=== PATIENT | male | born 1990 | race African-American/Black ===

== ENCOUNTER 2016-11-05 08:36 | Emergency (ER) | payer SELFPAY ==
[~2016-11-05] VITALS: Ht 193 cm; Wt 108.9 kg
--- NOTE | 2016-11-05 08:44 | NUR ---
DR CURRY AT THE BEDSIDE FOR EVAL AND EXAM.
[2016-11-05] MEDS ORDERED: IV NORMAL SALINE 1000 ML BAG IV ONE (08:45)
[2016-11-05] MEDS ORDERED: PANTOPRAZOLE SODIUM 40 MG VIAL IV ONE (08:45)
[2016-11-05] MEDS ORDERED: HYDROMORPHONE 1 MG/1 ML DISP.SYRIN IV ONE ×2 (08:45→10:30)
[2016-11-05] MEDS ORDERED: ONDANSETRON 4 MG/2 ML VIAL IV ONE ×2 (08:45→10:30)
[2016-11-05] MEDS ORDERED: HYDROMORPHONE 2 MG/1 ML DISP.SYRIN ONE ×2 (08:59→10:41)
[2016-11-05] MEDS ORDERED: PANTOPRAZOLE SODIUM 40 MG VIAL ONE (08:59)
[2016-11-05] MEDS ORDERED: ONDANSETRON 4 MG/2 ML VIAL ONE ×3 (08:59→10:41)
[2016-11-05 09:10] LABS: BASOPHILS % (AUTO) 0.4 % (0.0-2.0); EOSINOPHILS # (AUTO) 0.2 K/uL (0.0-0.7); EOSINOPHILS % (AUTO) 1.9 % (0.0-7.0); HEMATOCRIT 46.8 % (40-50); HEMOGLOBIN 15.6 G/DL (14.0-18.0); LYMPHOCYTES # (AUTO) 1.9 K/UL (0.8-4.8); MEAN CORPUSCULAR HEMOGLOBIN 29.5 UUG (27.0-31.0); MEAN CORPUSCULAR HGB CONC 33 g/dL (32.0-37.0); MEAN CORPUSCULAR VOLUME 88.7 FL (82.0-92.0); MONOCYTES # (AUTO) 0.6 K/UL (0.1-1.30); MONOCYTES % (AUTO) 5.5 % (0.0-11.0); NEUTROPHILS # (AUTO) 8.2 K/UL (1.8-8.9); NEUTROPHILS % (AUTO) 75.2 % (38.5-71.5); PLATELET COUNT (AUTO) 274 K/UL (150-450); RED BLOOD CELL COUNT(AUTO) 5.28 MIL/UL (4.7-6.1); RED CELL DISTRIBUTION WIDTH 12.4 % (11.5-14.5); WHITE BLOOD COUNT (AUTO) 10.9 K/UL (4.0-11.2)
[2016-11-05] MEDS ORDERED: ONDANSETRON IV *ER 4 MG/2 ML VIAL IV ONE (09:45)
[2016-11-05 09:52] LABS: ALBUMIN 4.5 g/dL (3.4-5.0); BILIRUBIN,DIRECT 0.1 mg/dL (0.0-0.2); BILIRUBIN,TOTAL 0.6 mg/dL (0.2-1.0); CREATININE 1.1 mg/dL (0.6-1.3); POTASSIUM 3.6 mmol/L (3.5-5.1); TOTAL PROTEIN, SERUM 8.3 g/dL (6.4-8.2)
[2016-11-05 09:59] LABS: EOSINOPHILS % (MANUAL) 3 % (0-8); LYMPHOCYTES % (MANUAL) 22 % (20-40); MONOCYTES % (MANUAL) 3 % (2-10); NEUTROPHILS % (MANUAL) 72 % (42-75)
[2016-11-05 10:00] LABS: PLATELET ESTIMATE ADEQUATE
[2016-11-05 10:30] LABS: CALCIUM 9.6 mg/dL (8.5-10.1)
[2016-11-05] MEDS ORDERED: DICYCLOMINE HCL 10 MG/5 ML UDC LIQ PO ONE (10:30)
[2016-11-05] MEDS ORDERED: MAG HYDROX/AL HYDROX/SIMETH 30 ML LIQUID UDC PO ONE (10:30)
[2016-11-05] MEDS ORDERED: DICYCLOMINE HCL 10 MG/5 ML UDC LIQ ONE ×2 (10:33→10:34)
[2016-11-05] MEDS ORDERED: MAG HYDROX/AL HYDROX/SIMETH 30 ML LIQUID UDC ONE (10:33)
--- NOTE | 2016-11-05 10:43 | NUR ---
Patient discharged to home in stable conditon. Written and verbal after care instructions given. Patient verbalizes understanding of instructions. pt instructed to call for ride and not drive.
--- NOTE | 2016-11-05 10:44 | NUR ---
PT LEFT ER W/ STEAD GAIT.
[2016-11-05 10:48] VITALS: BP 122/68
== END 2016-11-05 10:45 | disposition home or self-care (01) ==
LOC: ER 08:36
DX: K29.70 Gastritis, unspecified, without bleeding (principal); R10.13 Epigastric pain; Z88.6 Allergy status to analgesic agent; Z88.8 Allergy status to other drugs, medicaments and biological substances
CPT/HCPCS: 80048; 80076; 83690; 85025; 96361; 96374; 96375; 96376; 99284; A4663; C9113; J1170 ×2; J2405 ×2; J7030

== ENCOUNTER 2016-11-07 09:34 | Emergency (ER) | payer SELFPAY ==
[~2016-11-07] VITALS: Ht 193 cm; Wt 108.8 kg
[2016-11-07] MEDS: HYDROMORPHONE 1 MG/1 ML DISP.SYRIN IV ONE (09:40)
[2016-11-07] MEDS: ONDANSETRON 4 MG/2 ML VIAL IV ONE (09:47)
[2016-11-07] MEDS ORDERED: HYDROMORPHONE 1 MG/1 ML DISP.SYRIN ONE (09:48)
[2016-11-07] MEDS ORDERED: ONDANSETRON 4 MG/2 ML VIAL ONE (09:56)
--- NOTE | 2016-11-07 10:00 | NUR ---
Patient discharged to home in stable conditon. Written and verbal after care instructions given. pt walks in steady gait. pt still making sounds and forcing vomit, with nothing in the bag. talked to pacheco zhang multiple times before being d/chantal. Addendum: 11/07/16 at 1013 by JASWANT pt friend to waste picker the pt. pt not driving
[2016-11-07 10:13] VITALS: BP 121/79
[2016-11-07] MEDS ORDERED: PANTOPRAZOLE SODIUM 40 MG TABLET.DR PO ONE (10:15)
== END 2016-11-07 10:14 | disposition home or self-care (01) ==
LOC: ER 09:34
DX: R10.9 Unspecified abdominal pain (principal); Z88.6 Allergy status to analgesic agent; Z88.8 Allergy status to other drugs, medicaments and biological substances
CPT/HCPCS: A4663; J1170; J2405